=== PATIENT | male | born 1965 | race Caucasian/White ===

== ENCOUNTER 2017-05-16 05:25 | Observation (INO) ==
[2017-05-16 05:53] LABS: Basophils # 0.1 K/mcL (0.0-0.2); Basophils % 0.6 %; Eosinophils # 0.1 K/mcL (0.0-0.6); Eosinophils % 0.5 %; Hematocrit 46.2 % (37.5-50.1); Hemoglobin 15.8 g/dL (12.9-16.9); Immature Granulocytes % 0.4 % (0-4); Lymphocytes # 2.1 K/mcL (0.6-4.6); Lymphocytes % 21.1 %; Mean Corpuscular HGB Conc 34.2 g/dL (31.6-35.5); Mean Corpuscular Hemoglobin 34.7 pg (28.0-33.3); Mean Corpuscular Volume 101.5 fL (83.0-100.0); Mean Platelet Volume 9.1 fL (9.4-12.4); Monocytes # 0.8 K/mcL (0.0-1.3); Monocytes % 7.8 %; Neutrophils # 6.8 K/mcL (1.6-8.9); Platelet Count 259 K/mcL (140-400); Red Blood Count 4.55 M/mcL (4.19-5.50); Red Cell Distribution Width 12.7 % (11.5-14.5); Segmented Neutrophils % 69.6 %
[2017-05-16] MEDS ORDERED: Aspirin 325 MG TABLET PO ONE (05:53)
[2017-05-16] MEDS ORDERED: Nitroglycerin 0.4 MG TAB.SUBL SL PRN (05:53)
--- NOTE | 2017-05-16 05:53 | Emergency Department Note ---
Disposition Clinical Impression: Chest pain Qualifiers: Chest pain type: unspecified Qualified Code(s): R07.9 - Chest pain, unspecified Disposition: Admitted As Inpatient Condition: Good Referrals: Gisella Mcmullen MD [Primary Care Provider] - Forms: ED Satisfaction Letter General Adult HPI - General Chief complaint: ED Shortness of Breath/Dyspnea Stated complaint: SOB Time Seen by Provider: 05/16/17 05:27 Source: patient, family Limitations: no limitations Nursing Notes Reviewed: Yes Vital Signs Reviewed: Yes - History of Present Illness HPI Narrative: 51-year-old male the past medical history of hyperlipidemia. He reports that he is been having intermittent substernal left-sided chest discomfort with radiation to the left arm intermittently for a few months. He has a first scheduled appointment with cardiology in June. He has never had a cardiac evaluation. He does smoke. He does have a family history of cardiac disease at this age in his father and brother. He does have intermittent nausea associated with his symptoms. He denies any lower extremity edema. He denies any fever or cough. Pain Scale: 5 Consistency: intermittent Improves with: nothing Worsens with: nothing Associated symptoms: Reports: denies other symptoms Treatments Prior to Arrival: none - Related Data Home Medications Medication Instructions Recorded Confirmed Multivit-Min/FA/Lycopen/Lutein 1 tab PO DAILY 03/20/16 03/20/16 [Men 50 Plus Multivitamin Tab] Atorvastatin [Lipitor] 40 mg PO HS 05/16/17 05/16/17 Allergies Allergy/AdvReac Type Severity Reaction Status Date / Time No Known Allergies Allergy Verified 05/16/17 05:30 All systems ED: reviewed and negative except as stated. Constitutional: Denies: fever ENT ED: Denies: throat pain Cardiovascular: Reports: chest pain Respiratory: Denies: cough Gastrointestinal: Denies: abdominal pain Musculoskeletal: Denies: back pain Integumentary: Denies: rash Neurological: Denies: headache Past Medical History - Past Medical History Medical history: Reports: no medical history Surgical history: Reports: other Psychiatric history: Reports: no psych history - Social History Smoking Status: Former smoker Alcohol use: Reports: occasionally Drug use: Reports: none Physical Exam - General Limitations: no limitations General appearance: alert - Head Head exam: atraumatic - Eye Eye exam: Present: normal appearance, PERRL - ENT ENT exam: normal exam, normal oropharynx - Neck Neck exam: Present: normal inspection - Chest Chest inspection: Present: normal inspection - Respiratory Respiratory exam: Present: normal lung sounds bilaterally. Absent: respiratory distress - Cardiovascular Cardiovascular exam: Present: regular rate, normal rhythm - Abdominal Exam Abdominal exam: Present: soft, Non-Tender - Extremities Exam Extremities exam: Present: normal inspection - Neurological Exam Neurological exam: Present: alert, oriented X3 - Psychiatric Psychiatric exam: Present: normal affect, normal mood - Skin Skin exam: Present: warm, dry Course Course Narrative: EKG is normal sinus rhythm. Troponin is negative. Lab work otherwise unremarkable. Chest x-ray is clear. His pain is resolved. I will admit him for a chest pain rule out. Vital Signs Temperature 97.3 F L 05/16/17 05:26 Pulse Rate 96 05/16/17 05:26 Respiratory Rate 24 05/16/17 05:26 Blood Pressure 122/76 05/16/17 05:26 O2 Sat by Pulse Oximetry 100 05/16/17 05:26 Temperature 97.3 F L 05/16/17 05:26 Pulse Rate 68 05/16/17 06:09 Respiratory Rate 12 05/16/17 06:09 Blood Pressure 96/64 05/16/17 06:09 O2 Sat by Pulse Oximetry 98 05/16/17 06:09 Oxygen Delivery Oxygen Delivery Room Air Medical Decision Making - Medical Records Medical records reviewed: Yes I reviewed the patient's medical records. - Lab Data Lab results reviewed: Yes I reviewed the patient's lab results. Result diagrams: 05/16/17 05:41 05/16/17 05:41 Lab Results 05/16/17 05/16/17 05/16/17 Range/Units 05:41 05:41 05:41 WBC 9.8 (4.3-11.1) K/mcL RBC 4.55 (4.19-5.50) M/mcL Hgb 15.8 (12.9-16.9) g/dL Hct 46.2 (37.5-50.1) % MCV 101.5 H (83.0-100.0) fL MCH 34.7 H (28.0-33.3) pg MCHC 34.2 (31.6-35.5) g/dL RDW 12.7 (11.5-14.5) % Plt Count 259 (140-400) K/mcL MPV 9.1 L (9.4-12.4) fL Immature Gran % 0.4 (0-4) % Seg Neutrophils % 69.6 % Lymphocytes % 21.1 % Monocytes % 7.8 % Eosinophils % 0.5 % Basophils % 0.6 % Neutrophils # 6.8 (1.6-8.9) K/mcL Lymphocytes # 2.1 (0.6-4.6) K/mcL Monocytes # 0.8 (0.0-1.3) K/mcL Eosinophils # 0.1 (0.0-0.6) K/mcL Basophils # 0.1 (0.0-0.2) K/mcL Reactive Lymphocytes Present A (Not Present) Platelet Estimate Normal (Normal) Sodium 139 (136-145) mEq/L Potassium 4.1 (3.5-4.5) mEq/L Chloride 100 (98-109) mEq/L Carbon Dioxide 17 L (19-29) mEq/L BUN 15 (8-26) mg/dL Creatinine 1.14 (0.72-1.25) mg/dL Est GFR ( Amer) > 60 (> 60) Est GFR (Non-Af Amer) > 60 (> 60) BUN/Creatinine Ratio 13 (6-26) Glucose 138 H (70-99) mg/dL Calculated Osmolality 291 (280-300) Calcium 10.3 (8.6-10.8) mg/dL Troponin I 0.01 (0-0.03) ng/mL B-Natriuretic Peptide (0-100) pg/mL 05/16/17 Range/Units 05:41 WBC (4.3-11.1) K/mcL RBC (4.19-5.50) M/mcL Hgb (12.9-16.9) g/dL Hct (37.5-50.1) % MCV (83.0-100.0) fL MCH (28.0-33.3) pg MCHC (31.6-35.5) g/dL RDW (11.5-14.5) % Plt Count (140-400) K/mcL MPV (9.4-12.4) fL Immature Gran % (0-4) % Seg Neutrophils % % Lymphocytes % % Monocytes % % Eosinophils % % Basophils % % Neutrophils # (1.6-8.9) K/mcL Lymphocytes # (0.6-4.6) K/mcL Monocytes # (0.0-1.3) K/mcL Eosinophils # (0.0-0.6) K/mcL Basophils # (0.0-0.2) K/mcL Reactive Lymphocytes (Not Present) Platelet Estimate (Normal) Sodium (136-145) mEq/L Potassium (3.5-4.5) mEq/L Chloride (98-109) mEq/L Carbon Dioxide (19-29) mEq/L BUN (8-26) mg/dL Creatinine (0.72-1.25) mg/dL Est GFR ( Amer) (> 60) Est GFR (Non-Af Amer) (> 60) BUN/Creatinine Ratio (6-26) Glucose (70-99) mg/dL Calculated Osmolality (280-300) Calcium (8.6-10.8) mg/dL Troponin I (0-0.03) ng/mL B-Natriuretic Peptide < 10 (0-100) pg/mL - Radiology Data Radiology results reviewed: Yes I reviewed the patient's radiology results. - EKG Data EKG #1 EKG attestation: Yes I reviewed and interpreted this EKG. EKG shows normal: sinus rhythm Rate: normal Rhythm: NSR [place]/QRS: normal When compared to previous EKG there are: no significant changes Interpretation: no acute changes Attestation Statement - Attestation Attestation: I, Kyle Hess MD, personally evaluated this patient and discussed their management with the resident physician. I reviewed the resident's note and agree with the documented findings, medical decision making, and plan of care. 51-year-old male presents to the emergency department with a complaint of intermittent chest pains over the past several weeks but worse over the past 1 week. He describes it as somewhat squeezing his chest. Worse on the left side of his chest. Sometimes it causes him to break out in a sweat. Mild shortness of breath. There is been no cough or fever. Pain radiates to the left arm intermittently. It does not necessarily seem to be associated with exertion. No history of any heart problems. He did see his family doctor last week and was scheduled for an appointment with cardiology but not until next month. Pain became worse this morning. On examination patient is a well-developed well-nourished male in no acute distress. He is alert and oriented 3. There is no cyanosis or diaphoresis. Chest is nontender to palpation. Breath sounds are clear and equal bilaterally. Heart regular rate and rhythm. Abdomen soft and nontender with normal bowel sounds. No pedal edema. No acute changes on EKG. No acute abnormality on chest x-ray. Labs reviewed. The hospitalist, Dr. Borjas, was consulted and accepted admission of the patient.
[2017-05-16 06:22] LABS: Reactive Lymphocytes Present (Not Present)
[2017-05-16 06:23] LABS: Platelet Estimate Normal (Normal)
[2017-05-16 06:34] LABS: BUN/Creatinine Ratio 13 (6-26); Blood Urea Nitrogen 15 mg/dL (8-26); Calcium 10.3 mg/dL (8.6-10.8); Carbon Dioxide 17 mEq/L (19-29); Chloride 100 mEq/L (98-109); Glucose 138 mg/dL (70-99); Osmolality,Calculated 291 (280-300); Potassium 4.1 mEq/L (3.5-4.5); Sodium 139 mEq/L (136-145); eGFR For African Americans > 60 (> 60); eGFR For Non-African Americans > 60 (> 60)
[2017-05-16] MEDS ORDERED: Naloxone 0.4 MG/ML INJ IVP PRN (08:38)
--- NOTE | 2017-05-16 09:04 | Internal Med History&Physical ---
Date of Encounter: 05/16/17 Time of Encounter: 09:00 Assessment and Plan (1) Chest pain Current visit: Yes Status: Acute 51/1 Admitted with anginal chest pain. Strong family history. More than 4 family members /CT before the age of 55. Admitted with precordial chest pain. Plan: -Admitted as an observation: Rule out myocardial infarction protocol. -Aspirin 81 mg/Lipitor 40 mg/metoprolol 12.5 mg twice a day. -Cardiac diet for now. -Nothing by mouth for midnight for possible stress test if the troponins are normal and echocardiogram within normal limits. -trend troponin. -Echocardiogram: The mammogram is within normal limits and 3 troponins are negative as mentioned please consider pharmaceutical stress test. -I explain this point plan to the patient at length and he verbalized understanding. -Patient is nothing by mouth and if he gets scheduled for stress test is do not give him metoprolol tomorrow morning Qualifiers: Chest pain type: unspecified Qualified Code(s): R07.9 - Chest pain, unspecified (2) Hyperlipidemia Current visit: Yes Status: Acute Presently on 40 mg of Lipitor. Qualifiers: Hyperlipidemia type: unspecified Qualified Code(s): E78.5 - Hyperlipidemia , unspecified (3) Smoker Current visit: Yes Status: Acute Patient is an active smoker and does not want to quit smoking. (4) DVT prophylaxis Current visit: Yes Status: Acute SCD Decision-making: This patient has a moderate to severe risk of worsening in spite of being on appropriate medication due to the underlying comorbid conditions/his addictions Internal Medicine - H&P: HPI Chief complaint: Chest pain Admitted From: Emergency Dept Plans for Post Hospital Care: Home History of present illness: PCP: Dr Mcmullen Brief past medical history: Patient has a strong family history of for cardiac disease. Hyperlipidemia taking Lipitor 40 mg. History of present illness: Patient was experiencing left precordial chest pain which was started around 2 weeks ago and gradually worsening for the past 10 days. Patient occasionally consumes heavy amount of alcohol. Yesterday he was drinking since 8 AM in the morning. Patient noted that around 9:30 in the evening he had excruciating pain in the left precordial region which was radiating to the left arm. Patient also complains of occasional shortness of breath. Patient claims that he was asked by his primary care provider to look into the cardiac issues since he has a strong family history of a in 50s secondary to the cardiac disease. Patient came to emergency room because of the persistent chest pain. Patient denies abdominal pain, nausea, vomiting, diarrhea or dizziness. Workup in the emergency room: Patient was evaluated in the emergency room. Basic labs were drawn. EKG was taken. Reason for admission: Patient admitted to the hospital as a chest pain to rule out acute coronary syndrome. Heart score 2. Family history: Significant for coronary artery disease Past Med Surg Social Fam HX - Past Medical History Medical history: no medical history Psychiatric history: no psych history - Past Surgical History Surgical History: other - Social History Smoking Status: Former smoker Smokeless Tobacco Status: No Alcohol use: occasionally Drug use: none Internal Medicine - H&P: Meds Multivit-Min/FA/Lycopen/Lutein [Men 50 Plus Multivitamin Tab] 1 tab PO DAILY 06/23 [History] Atorvastatin [Lipitor] 40 mg PO HS 05/16/17 [History] 3 Allergy/AdvReac Type Severity Reaction Status Date / Time No Known Allergies Allergy Verified 05/16/17 05:30 All Systems PM: A 10-system review of systems was performed and is negative for pertinent findings except as documented above in the HPI. - Constitutional Constitutional: no chills, no fever(s), no night sweats - EENT Eyes: no change in vision, no discharge, no pain, no photophobia Ears: no ear discharge, no ear pain, no tinnitus Nose, mouth and throat: no dysphagia, no nasal discharge, no neck pain, no sore throat - Cardiovascular Cardiovascular ROS IM: chest pain, diaphoresis, dyspnea, palpitations, no lightheadedness, no syncope - Respiratory Respiratory: no cough, no dyspnea, no wheezing, no excessive phlegm production - Gastrointestinal Gastrointestinal: no abdominal pain, no diarrhea, no hematemesis, no hematochezia, no melena, no nausea, no vomiting - Musculoskeletal Musculoskeletal ROS IM: no numbness, no tingling - Integumentary Integumentary IM: no rash, no unusual bruising - Neurological Neurological ROS: no confusion, no convulsions, no focal weakness, no numbness, no tingling, no tremor(s) - Hematologic/Lymphatic Hematologic/Lymphatic: no easy bruising - Constitutional Vitals: Temp Pulse Resp BP Pulse Ox 98.0 F 65 20 93/81 97 05/16/17 07:26 05/16/17 07:26 05/16/17 07:26 05/16/17 07:26 05/16/17 07:51 General appearance: Present: A&O X 3, pleasant, no acute distress, answers questions appropriately - Head Head exam: Present: atraumatic, normocephalic - Eye Eye exam: Present: PERRL, conjuntiva pink, sclera anicteric Pupils: Present: PERRL - Neck Neck exam general surgery: Present: supple, trachea midline. Absent: lymphadenopathy - Respiratory Respiratory exam: Present: CTAB. Absent: accessory muscle use, rales, rhonchi, wheezes - Cardiovascular Cardiovascular exam: Present: RRR, +S1, +S2. Absent: diastolic murmur, gallop, rubs, systolic murmur - GI/Abdominal GI/Abdominal exam: Present: normal bowel sounds, soft, no peritoneal signs. Absent: distended, tenderness - Extremities Exam Extremities exam: Present: warm, radial pulses palpable and symmetrical. Absent : calf tenderness, cyanotic, pedal edema - Neurological Exam Neurological exam: Present: CN II-XII intact, oriented X3, no focal deficits. Absent: pronater drift, facial droop, speech deficit - Skin Skin exam: Present: dry, intact Internal Med - H&P Results - Labs CBC & Chem 7: 05/16/17 05:41 05/16/17 05:41
[2017-05-16] MEDS: Aspirin Enteric Coated 81 MG Tablet PO SCH (09:10)
[2017-05-16] MEDS: Acetaminophen 325 MG TABLET PO PRN (17:51)
--- NOTE | 2017-05-16 19:37 | Electrocardiograph Report ---
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
[2017-05-17 04:55] LABS: Basophils % 0.6 %; Eosinophils # 0.1 K/mcL (0.0-0.6); Eosinophils % 2.3 %; Hematocrit 42.1 % (37.5-50.1); Immature Granulocytes % 0.2 % (0-4); Lymphocytes # 1.6 K/mcL (0.6-4.6); Lymphocytes % 30.7 %; Mean Corpuscular HGB Conc 33.5 g/dL (31.6-35.5); Mean Corpuscular Hemoglobin 34.6 pg (28.0-33.3); Mean Corpuscular Volume 103.2 fL (83.0-100.0); Mean Platelet Volume 9.4 fL (9.4-12.4); Monocytes # 0.7 K/mcL (0.0-1.3); Monocytes % 12.8 %; Neutrophils # 2.8 K/mcL (1.6-8.9); Platelet Count 224 K/mcL (140-400); Red Blood Count 4.08 M/mcL (4.19-5.50); Red Cell Distribution Width 12.7 % (11.5-14.5); Segmented Neutrophils % 53.4 %
[2017-05-17 04:58] LABS: Hemoglobin 14.1 g/dL (12.9-16.9)
[2017-05-17 05:00] LABS: INR 1.1; Prothrombin Time 11.4 Seconds (9.4-12.1)
[2017-05-17 05:03] LABS: Activated Partial Thrombo Time 26.9 Seconds (26.0-36.0)
[2017-05-17 05:16] LABS: Alanine Aminotransferase 28 Units/L (0-55); Albumin 3.5 g/dL (3.5-5.0); Alkaline Phosphatase 48 Units/L (38-126); Aspartate Amino Transferase 38 Units/L (5-34); BUN/Creatinine Ratio 19 (6-26); Bilirubin,Total 0.6 mg/dL (0.2-1.2); Blood Urea Nitrogen 20 mg/dL (8-26); Calcium 9.5 mg/dL (8.6-10.8); Carbon Dioxide 28 mEq/L (19-29); Chloride 103 mEq/L (98-109); Chol/HDL Ratio 4.3 (0-4.9); Cholesterol 136 mg/dL (< 200); Globulin 3.5 g/dL (2.4-3.5); Glucose 95 mg/dL (70-99); HDL Cholesterol 32 mg/dL (40-59); LDL Cholesterol,Calculated 76 mg/dL (0-99); Osmolality,Calculated 292 (280-300); Potassium 4.2 mEq/L (3.5-4.5); Sodium 140 mEq/L (136-145); Triglycerides 142 mg/dL (< 150); eGFR For African Americans > 60 (> 60); eGFR For Non-African Americans > 60 (> 60)
[2017-05-17 05:20] LABS: Platelet Estimate Normal (Normal)
[2017-05-17 05:21] LABS: Large Platelets Present (Not Present); Reactive Lymphocytes Present (Not Present)
[2017-05-17] MEDS: Acetaminophen 325 MG TABLET PO PRN (07:58)
[2017-05-17] MEDS ORDERED: Regadenoson 0.4 MG/5 ML SYRINGE IVP ONE (09:25)
[2017-05-17] MEDS: Aspirin Enteric Coated 81 MG Tablet PO SCH (11:48)
[2017-05-17 15:01] VITALS: BP 104/65
--- NOTE | 2017-05-17 16:15 | Discharge Summary ---
Date of Encounter: 05/17/17 Time of Encounter: 15:55 - Discharge Diagnosis (1) Chest pain Priority: Primary Status: Acute Comments: Pt reports left chest pain, describes as pressure/squeezing. Pt reports onset 2 weeks ago, becoming increasingly worse for 10 days, worse yesterday while at work. He reports SOB, diaphoresis, and nausea with chest pain. Denies relieving or aggravating factors, states was 8/10. Pt has strong family history of heart disease and pt has history of HTN, HLD, smoking, and ETOH abuse. PT was drinking extensively prior to arrival in ED. Stress test with gated EF 70%, negative for ischemia or infarct. Echocardiogram with LVEF and no significant valvular dysfunction. Chest x-ray are negative, suggestive of emphysema with hyperinflated lungs. Troponins negative 4. Patient denies chest pain since prior to arrival. Uncertain etiology to chest pain, most likely due to excessive alcohol use. The pain is not reproducible with palpation, movement, or deep inspiration. Pt will continue his home medications and add baby ASA daily. Qualifiers: Chest pain type: unspecified Qualified Code(s): R07.9 - Chest pain, unspecified (2) ETOH abuse Priority: Primary Status: Acute Comments: Chronic. Pt states that he normally drinks a case of beer on the weekends. Pt denies needing or wanting help. (3) Hyperlipidemia Priority: Secondary Status: Chronic Comments: Chronic. Labs are within normal limits. Continue home medications. Qualifiers: Hyperlipidemia type: unspecified Qualified Code(s): E78.5 - Hyperlipidemia , unspecified (4) DVT prophylaxis Priority: Secondary Status: Acute Comments: Patient is ambulatory. (5) Smoker Priority: Secondary Status: Chronic - Discharge Medications Prescriptions: Aspirin Enteric Coated [Aspirin EC] 81 mg PO DAILY #30 tablet. Home Medications: Multivit-Min/FA/Lycopen/Lutein [Men 50 Plus Multivitamin Tab] 1 tab PO DAILY 06/23 [History] Atorvastatin [Lipitor] 40 mg PO HS 05/16/17 [History] Aspirin Enteric Coated [Aspirin EC] 81 mg PO DAILY #30 tablet. 05/17/17 [Rx] Allergies/Adverse Reactions: 3 Allergy/AdvReac Type Severity Reaction Status Date / Time No Known Allergies Allergy Verified 05/16/17 05:30 Procedures/tests Complete & Pending: Procedures Performed prior 72 hours Category Date Time Status NM mirian perf SPECT multi [NM] Routine Exams 05/17/17 08:15 Taken EV echocardiogram Routine Y 05/16/17 08:41 Completed SP pharm nuclear stress Routine Y 05/17/17 07:19 Completed Date of admission: 05/16/17 06:49 Primary care physician: Gisella Mcmullen Consults: 05/17/17 11:07 Consult to [employer] Weapons Unit Officer [CONS] Routine Reason for SW Consult: re-admit Discharging clinician: Erlinda Ogden Anticipated date of discharge: 05/17/17 - Patient Status Disposition: Home, Self-Care Condition: Good Functional capacity at discharge: independent ambulation Overall status at discharge: patient is back to baseline - Discharge Instructions Follow Up With: Gisella Mcmullen MD [Primary Care Provider] - Additional Instructions: Follow-up with her primary care provider. He may return to work on Sunday May 21, 2017. Take your medications as directed and add Aspirin 81mg daily REturn to the ER as needed for any other problems or concerns or if your symptoms return or worsen. Resume your normal activities and diet as tolerated. - Diet and Activity Activity: increase activity as tolerated Diet: low fat, low cholesterol Hospital course: Please see assessment and plan for hospital course. - Time Spent with Patient Total time spent providing and/or coordinating discharge services: Less than 30 minutes - Constitutional Vitals: Temp Pulse Resp BP Pulse Ox 98.1 F 64 18 104/65 97 05/17/17 15:01 05/17/17 15:01 05/17/17 15:01 05/17/17 15:01 05/17/17 15:01 General appearance: Present: cooperative, A&O X 3, pleasant, no acute distress, answers questions appropriately - Head Head exam: Present: atraumatic, normal inspection, normocephalic - Eye Eye exam: Present: normal appearance, conjuntiva pink, sclera anicteric - Neck Neck exam general surgery: Present: normal inspection, supple, trachea midline. Absent: lymphadenopathy - Respiratory Respiratory exam: Present: CTAB. Absent: accessory muscle use, decreased breath sounds, rales, respiratory distress, rhonchi, wheezes - Cardiovascular Cardiovascular exam: Present: RRR, +S1, +S2. Absent: diastolic murmur, gallop, rubs, systolic murmur - GI/Abdominal GI/Abdominal exam: Present: normal bowel sounds, soft. Absent: distended, hepatomegaly, tenderness - Extremities Exam Extremities exam: Present: normal capillary refill, warm, radial pulses palpable and symmetrical. Absent: calf tenderness, cyanotic, pedal edema, tenderness - Neurological Exam Neurological exam: Present: alert, oriented X3, no focal deficits, pronater drift. Absent: facial droop, speech deficit - Skin Skin exam: Present: dry, intact, normal color, warm. Absent: rash
== END 2017-05-17 18:02 | disposition home or self-care (01) ==
LOC: 3BNU 05:25 → EMEROO 05:25 → 3BNU 07:11
PROVIDERS: ADMIT Internal Medicine; ATTEND Registered Nurse